=== PATIENT | male | born 1985 | race Caucasian/White ===

== ENCOUNTER → 2017-11-25 | Outpatient (CLI) | payer OTHER ==
--- NOTE | 2017-11-25 09:00 | Diagnostic Imaging Report ---
INDICATION: Right breast enlargement. No prior mammograms are available for comparison. 2-D and 3-D bilateral diagnostic mammography was performed with a Computer Aided Detection (CAD) system. FINDINGS: There is moderate fibronodular tissue identified in the right breast suggestive of gynecomastia. There appears to be a lymph node in the lower and slightly outer aspect of the right breast at mid depth. No spiculated mass or malignant appearing calcifications are seen. Left breast is unremarkable. Axillae are unremarkable. IMPRESSION: Moderate fibroglandular tissue in the right breast suggestive of gynecomastia. Even so, further evaluation of the right breast with ultrasound is recommended. ACR BI-RADS Category 0: Incomplete. (Needs additional imaging evaluation). Result letter will be mailed to the patient. Note: At least 10% of breast cancer is not imaged by mammography. Dictated by: Dictated on workstation # [id number]
--- NOTE | 2017-11-25 09:53 | Diagnostic Imaging Report ---
Indication: Right breast fullness. Correlation is made with diagnostic mammogram earlier same day. Sonographic interrogation of the right breast was performed. Retroareolar regions were evaluated in both right and left breast. There is normal breast architecture. No sonographic abnormality is seen. No solid or cystic masses detected. Impression: BI-RADS 2 1. No sonographic abnormality is seen. Findings on mammography are most consistent with gynecomastia. Clinical followup is recommended. ACR BI-RADS Category 2: Benign findings. Dictated by: Dictated on workstation # [id number]
== END ==
LOC: RAD 08:35
PROVIDERS: ATTEND Nurse Practitioner Family
DX: N62 Hypertrophy of breast (principal)

== ENCOUNTER 2017-12-01 08:50 | Outpatient (CLI) | payer OTHER | END 2017-12-01 09:20 | disposition home or self-care (01) | LOC: SLEEP 08:50 → EDUNIT# 09:00 → SLEEP 09:20 | PROVIDERS: ATTEND Nurse Practitioner Family | DX: G47.10 Hypersomnia, unspecified (principal); R06.83 Snoring ==

== ENCOUNTER 2020-08-15 11:08 | Day surgery (SDC) | payer BC ==
[~2020-08-15] VITALS: Ht 180.3 cm; Wt 120.5 kg
[2020-08-15] VITALS (11 sets, daily range): BP systolic 122–164; BP diastolic 70–107
--- NOTE | 2020-08-15 11:21 | HISTORY AND PHYSICAL ---
DATE OF SERVICE: ATTENDING PRIMARY CARE PHYSICIAN: ATTENDING PHYSICIAN: Dr. Edwige Marcelino. HISTORY OF PRESENT ILLNESS: The patient is a 35-year-old male. He reports that he woke up this morning around 5:00 a.m. with right lower quadrant abdominal pain. He reports it was sudden in nature and sharp. He also reported episodes of nausea, but denied any fever or chills as well as no diarrhea or constipation. He reports that he was seen by his primary care physician and was sent for lab work as well as a CT of abdomen and pelvis. He was found to have leukocytosis of 11.8 as well as acute appendicitis on CT scan. PAST MEDICAL HISTORY: None. PAST SURGICAL HISTORY: Right inguinal hernia repair in 1991. ALLERGIES: No known drug allergies. MEDICATIONS: None. SOCIAL HISTORY: Negative for smoking and negative for alcohol. FAMILY HISTORY: Mother, hypertension and diabetes. REVIEW OF SYSTEMS: Well-nourished male in no acute distress. He is not experiencing any shortness of breath or difficulty breathing. No chest pain, palpitations or diaphoresis. He does report occasional episodes of nausea, but no vomiting. He does report episodes of right lower quadrant abdominal pain. No diarrhea or constipation. No red blood per rectum. No dark tarry stools. No fever or chills. No recent inadvertent weight loss. All other review of systems negative. PHYSICAL EXAMINATION: VITAL SIGNS: Blood pressure is 122/60. Current weight is 263.8 pounds, and 5 feet 11 inches. CHEST: Clear. Good breath sounds bilaterally. HEART: Regular, no murmurs. EXTREMITIES: No lower extremity edema. Negative Homans sign. HEENT: No scleral icterus. NECK: No cervical lymphadenopathy. ABDOMEN: Soft and nondistended. There is tenderness in the right lower abdominal quadrant to palpation as well as rebound tenderness. SKIN: Warm, dry and pink. NEUROLOGIC: Awake, alert and oriented x3. ASSESSMENT AND PLAN: A 35-year-old male with acute appendicitis. At this time, we will proceed with a laparoscopic appendectomy. Risks and benefits of the procedure as well as the procedure and home care instructions were explained to the patient. The patient verbalized understanding of instructions and agrees to this plan. At this time, we will schedule him for a laparoscopic appendectomy. He is instructed that he will need to do no heavy lifting for two weeks and will need to take it easy for a total of six weeks with lifting. Job ID: [id number] DocumentID: [id number] Dictated Date: 08/15/2020 10:48:21 All Terrain Vehicle Racer Date: 08/15/2020 11:20:44 Dictated By: CHRISTEN VIRK APRN
[2020-08-15] MEDS ORDERED: SEVOFLURANE (ULTANE) 15 ML INHAL SOLN ONE ×8 (11:26→15:33)
[2020-08-15] MEDS ORDERED: proPOfol 200 MG/20 ML (DIPRIVAN) VIAL IV ONE (11:26)
[2020-08-15] MEDS ORDERED: LIDOCAINE PF 2% 5 ML (XYLOCAINE) VIAL ONE (11:26)
[2020-08-15] MEDS ORDERED: ONDANSETRON 4 MG/2 ML (SDV) Z0FRAN ONE (11:26)
[2020-08-15] MEDS ORDERED: MIDAZOLAM 2 MG/2 ML (VERSED) VIAL ONE (11:27)
[2020-08-15] MEDS ORDERED: fentaNYL INJ 100 MCG/2 ML AMP ONE (11:27)
[2020-08-15] MEDS: LACTATED RINGERS 1,000 ML IV SCH ×2 (11:32→16:19)
[2020-08-15] MEDS ORDERED: ceFAZolin 2 GM IV Premixed 50 ML IV ONE (11:45)
[2020-08-15] MEDS ORDERED: GLYCOPYRROLATE 0.2 MG/ML (ROBINUL) 2 ML VIAL ONE (12:09)
[2020-08-15] MEDS ORDERED: NEOSTIGMINE 3 MG/3 ML VIAL ONE (12:09)
--- NOTE | 2020-08-15 12:14 | Progress Note-Pre Operative ---
Pre-Operative Progress Note H&P Reviewed The H&P was reviewed, patient examined and no changes noted. Date Seen by Provider: Aug 15, 2020 Time Seen by Provider: 12:10 Date H&P Reviewed: Aug 15, 2020 Time H&P Reviewed: 12:05 Pre-Operative Diagnosis: Acute appendicitis CHRISTEN VIRK APRN Aug 15, 2020 12:14
[2020-08-15] MEDS ORDERED: ACETAMINOPHEN 325 MG TABLET PO PRN (12:15)
[2020-08-15] MEDS ORDERED: ONDANSETRON 4 MG/2 ML (SDV) Z0FRAN IVP PRN ×2 (12:15→15:45)
[2020-08-15] MEDS ORDERED: HYDROcodone/APAP 5 MG/325 MG (LORTAB) TAB PO ONE (12:15)
[2020-08-15] MEDS ORDERED: HYDR-3817 PO (12:15)
[2020-08-15] MEDS ORDERED: morphine INJ 10 MG/ML 1ML (SYR OR VIAL) IVP PRN (12:15)
--- NOTE | 2020-08-15 12:15 | Discharge Inst-Surgical ---
D/C Lap Instructions-GENAROO Reconcile Patient Problems Problems Reviewed?: Yes New, Converted, or Re-Newed RX: RX given to Patient/Fam Follow Up Appt in 2 weeks Activity as tolerated No driving for 24 hours No driving while on pain medications Incentive Spirometry use every 2 hours while awake Regular Diet Symptoms to Report: Fever over 101 degree F, Nausea/Vomiting Infection Signs and Symptoms to report: Increased redness, Foul odor of wound, Increased drainage Bathing instructions: May shower Operative Area Clean/Dry; Keep incision clean/dry If any problems/questions: Contact your physician or go to Emergency Room CHRISTEN VIRK APRN Aug 15, 2020 12:15
[2020-08-15] MEDS ORDERED: LIDOCAINE/EPI 1%-1:100,000 (XYLOCAINE) 20ML ONE (13:14)
[2020-08-15] MEDS ORDERED: PHENYLEPHRINE 100 MCG/ML 10 ML (ANESTHESIA) SYR ONE ×2 (14:59→15:12)
[2020-08-15] MEDS ORDERED: SUCCINYLCHOLINE INJ 100 MG/5 ML SYR/VIAL ONE (15:10)
[2020-08-15] MEDS ORDERED: ROCURONIUM 10 MG/ML 5 ML SYRINGE IV ONE ×3 (15:12→15:32)
[2020-08-15] MEDS ORDERED: HYDROmorphone 2 MG/ML VIAL (DILAUDID) ONE (15:15)
--- NOTE | 2020-08-15 15:25 | Progress Note-Post Operative ---
Post-Operative Progess Note Surgeon (s)/Chemical Treatment Operator (s) Surgeon MARISA ARTHUR MD Chemical Treatment Operator: yessy cheek [employer] Pre-Operative Diagnosis Acute appendicitis Post-Operative Diagnosis same Procedure & Operative Findings Date of Procedure 08/15/20 Procedure Performed/Findings laparoscopic appendectomy Anesthesia Type get Estimated Blood Loss Estimated blood loss (mL): minimal Specimens/Packing Specimens Removed appendix MARISA ARTHUR MD Aug 15, 2020 15:25
[2020-08-15] MEDS ORDERED: HYDROmorphone 2 MG/ML VIAL (DILAUDID) IV ONE (15:45)
[2020-08-15] MEDS ORDERED: morphine INJ 10 MG/ML 1ML (SYR OR VIAL) IVP ONE (15:45)
[2020-08-15] MEDS ORDERED: HYDROcodone/APAP 5 MG/325 MG (LORTAB) TAB ONE (16:25)
--- NOTE | 2020-08-15 16:44 | Anesthesia-General Post-Op ---
General Patient Condition Mental Status/LOC: Same as Preop Cardiovascular: Satisfactory Nausea/Vomiting: Absent Respiratory: Satisfactory Pain: Controlled Complications: Absent Post Op Complications Complications None Follow Up Care/Instructions Patient Instructions None needed. Anesthesia/Patient Condition Patient Condition Patient is doing well, C/O minimal nausea and abdominal pain, stable vital signs, no apparent adverse anesthesia problems. He does have a sore throat from the intubation, and I told him it would resolve on its own in the next day or two. He appears to be ready for discharge to home. RODRIGO TOMPKINS DO Aug 15, 2020 16:44
--- NOTE | 2020-08-15 19:47 | OPERATIVE REPORT ---
DATE OF SERVICE: 08/15/2020 ATTENDING PRIMARY CARE PHYSICIAN: Dr. Edwige Marcelino. PREOPERATIVE DIAGNOSIS: Acute appendicitis. POSTOPERATIVE DIAGNOSIS: Acute appendicitis. PROCEDURE PERFORMED: Laparoscopic appendectomy. SURGEON: Marisa Arthur MD. WATER MECHANIC: Hans Reed APRN. ANESTHESIA: General endotracheal. ESTIMATED BLOOD LOSS: Minimal. FINDINGS: Inflammation of the appendix and mesoappendix, no perforation. DISPOSITION: The patient tolerated the procedure well. INDICATIONS FOR PROCEDURE: The patient is a 35-year-old male, who states that he woke up early this morning with acute onset of right lower abdominal quadrant pain, which was sharp in nature and would not remit. He also had reported nausea; however, no vomiting. He was seen by his primary care physician and lab work was done, which showed a slightly elevated white count 11.[address] scan was performed, which was consistent with acute an appendicitis. DESCRIPTION OF PROCEDURE: The patient was brought to the operating room and laid supine on the table. After adequate IV pain and sedative medications and general endotracheal intubation, the abdomen was prepped and draped in a standard surgical fashion. A 0.5% Marcaine with epinephrine was used to anesthetize the overlying skin in the left upper abdominal quadrant and a transverse skin incision was made using a 15 blade. A 0 silk suture was applied to the medial aspect of the incision for retraction and a Veress needle inserted with low opening pressure of 0 mmHg. The abdomen was then insufflated to 15 mmHg pressure. The Veress needle was removed and a 5 mm XL trocar placed followed by a 5 mm 45-degree angle laparoscope visualizing the peritoneal cavity. A four-quadrant abdominal exploration was performed. There was an inflamed appendix and mesoappendix. There was no perforation. The small bowel appeared normal with no Meckel's diverticulum. Under direct visualization, we then proceeded to place a supraumbilical 10 mm port after the peritoneal lining. Skin and peritoneal lining were anesthetized using 0.5% Marcaine with epinephrine and a transverse skin incision was made using a 15 blade. In a similar manner, a suprapubic 5 mm port was placed. The patient was then placed in a Trendelenburg position as well as plane right side up, left side down. The appendix was then retracted towards the anterior abdominal wall and a window created between the base of the appendix and the mesoappendix using a [place] dissector. The mesoappendix was then stapled and transected with a RASHEL 45 mm stapler with a 2.0 mm thickness load. The appendix was then stapled and transected at the cecal base using the same stapler with a 2.5 mm thickness reload with visualization of good hemostasis. The appendix was removed through the 10 mm port site using an EndoCatch bag. The abdomen was then desufflated. The 10 mm port site fascia and peritoneum were then closed under direct visualization using a Andre-Rona device and 0 Vicryl suture. Abdomen was desufflated and the remaining ports removed. All skin incisions were closed using 4-0 Monocryl running subcuticular sutures. Wounds were then cleaned and covered with Dermabond. The patient tolerated the procedure well. We will start IV normal pain medication as well as a clear liquid diet. Once he is tolerating clears, has good pain control with oral pain medications, and ambulating well, we will discharge him home. He will be instructed to do no heavy lifting or exertion for the next two weeks. Job ID: [id number] DocumentID: [id number] Dictated Date: 08/15/2020 15:31:22 Stamp Redemption Clerk Date: 08/15/2020 19:47:10 Dictated By: MARISA ARTHUR MD
== END 2020-08-15 17:45 ==
LOC: SDC 11:08
PROVIDERS: ATTEND Surgery
DX: K35.80 Unspecified acute appendicitis (principal)
CPT/HCPCS: 87081; 88304; 94664

== ENCOUNTER → 2020-08-15 | Outpatient (CLI) | payer BC, OTHER ==
[~2020-08-15] MED LIST: CATHETER FLUSH 10 ML SYR IV PRN; HOLD METFORMIN - RECEIVED CONTRAST 20 ML VIAL IV SCH; HYDR-3817 PO; IOHEXOL 350 MG/ML 100 ML (OMNIPAQUE 350) VIAL IV ONE; NS 100 ML (IVPB) BAG IV ONE
[2020-08-15 09:20] LABS: HEMOGLOBIN 15.6 g/dL (13.3-17.7); MEAN PLATELET VOLUME 10.1 fL (9.0-12.2); WHITE BLOOD COUNT 11.8 10^3/uL (4.3-11.0)
[2020-08-15 09:47] LABS: ALANINE AMINOTRANSFERASE 66 U/L (0-55); ALBUMIN 4.6 GM/DL (3.2-4.5); ALKALINE PHOSPHATASE 76 U/L (40-136); BILIRUBIN,TOTAL 0.8 MG/DL (0.1-1.0); BUN/CREATININE RATIO 14; CALCIUM 9.2 MG/DL (8.5-10.1); CARBON DIOXIDE 24 MMOL/L (21-32); CHLORIDE 105 MMOL/L (98-107); CREATININE SERUM 1.03 MG/DL (0.60-1.30); GFR ESTIMATED > 60; GLUCOSE 97 MG/DL (70-105); POTASSIUM 3.8 MMOL/L (3.6-5.0); SODIUM 138 MMOL/L (135-145); TOTAL PROTEIN 8.1 GM/DL (6.4-8.2)
--- NOTE | 2020-08-15 09:48 | Diagnostic Imaging Report ---
PROCEDURE: CT abdomen and pelvis with contrast, rule out appendicitis. TECHNIQUE: Multiple contiguous axial images were obtained through the abdomen and pelvis after the administration of intravenous contrast. All CT scans use one or more of the following dose optimizing techniques: automated exposure control, MA and/or KvP adjustment based on patient size and exam type or iterative reconstruction. INDICATION: Right lower quadrant abdominal pain. COMPARISON: None FINDINGS: Included portions of the lung bases suggest possible partially visualized micronodule in the right middle lobe that measures 5 mm ((image 1, series 2). Punctate subpleural micronodules also noted within the posterior lateral margins of the right lower lobe and measures 2 to 3 mm (image 10, series 2). CT ABDOMEN: There is acute appendicitis. Appendix is abnormally distended measuring 9 and 10 mm in diameter. There is mild hyperenhancement of the wall of the appendix. Additionally, there is mild stranding of periappendiceal fat. There is no significant free fluid. Additionally, no loculated air-fluid collection or free air is seen to suggest perforation. Proximal small bowel loops are nondistended. Liver is diffusely hypodense on this postcontrast exam consistent with underlying hepatic steatosis. No focal hepatic lesions are seen. Kidneys, adrenal glands, spleen, and pancreas have a normal CT appearance. There is no loculated fluid collection, free fluid or free air within the abdomen. No abnormal mesenteric or retroperitoneal adenopathy is seen. Osseous structures show no acute abnormalities. CT PELVIS: Urinary bladder is unopacified. No calculi are seen within urinary bladder. There is no loculated fluid collection, free fluid, nor free air. No abnormal lymph nodes are seen. Osseous structures show no acute abnormalities. IMPRESSION:. Acute appendicitis. No CT evidence of rupture. Results called to Sarah Tian by Dr. Sanchez at 0930 hours on 08/15/2020 Dictated by: Dictated on workstation # [id number]
== END ==
LOC: RAD 08:58
PROVIDERS: ATTEND Nurse Practitioner Family
DX: K35.80 Unspecified acute appendicitis (principal)
CPT/HCPCS: 36415; 74177; 80053; 85027

== ENCOUNTER → 2021-12-15 | Outpatient (CLI) | payer BC ==
[~2021-12-15] MED LIST changes: -CATHETER FLUSH 10 ML SYR IV PRN; -HOLD METFORMIN - RECEIVED CONTRAST 20 ML VIAL IV SCH; -IOHEXOL 350 MG/ML 100 ML (OMNIPAQUE 350) VIAL IV ONE; -NS 100 ML (IVPB) BAG IV ONE
--- NOTE | 2021-12-15 16:34 | Diagnostic Imaging Report ---
INDICATION: Cough, shortness of breath. EXAMINATION: Chest two views, 12/15/2021. FINDINGS: The cardiomediastinal silhouette is unremarkable. The pulmonary vasculature is within normal limits. The lungs and pleural spaces are clear. IMPRESSION: No evidence of an acute cardiopulmonary process. Dictated by: Dictated on workstation # [id number]
== END ==
LOC: RAD 14:17
PROVIDERS: ATTEND Nurse Practitioner Family
DX: R05.9 Cough, unspecified (principal); R06.02 Shortness of breath
CPT/HCPCS: 71046

== ENCOUNTER → 2022-01-16 | Outpatient (CLI) | payer BC ==
--- NOTE | 2022-01-16 10:18 | Diagnostic Imaging Report ---
INDICATION: COUGH COMPARISON: 12/15/2021 FINDINGS: Frontal and lateral views of the chest demonstrate normal heart size and pulmonary vascularity. The lungs are clear. There are no signs of infiltrate, pleural effusions or pneumothoraces. The visualized osseous structures show no acute abnormalities. IMPRESSION: 1. No acute process. No signs of infiltrates, effusions or pneumothoraces. Dictated by: Dictated on workstation # [id number]
== END ==
LOC: RAD 09:56
PROVIDERS: ATTEND Family Medicine
DX: R05.9 Cough, unspecified (principal)
CPT/HCPCS: 71046

== ENCOUNTER 2023-02-13 20:49 | Outpatient (CLI) | payer BC | END 2023-02-14 06:20 | LOC: CANPRECLI → SLEEP 20:49 | PROVIDERS: ATTEND Nurse Practitioner | DX: R06.81 Apnea, not elsewhere classified (principal); G47.00 Insomnia, unspecified | CPT/HCPCS: 95811 ==